=== PATIENT | male | born 1965 | race Caucasian/White ===

== ENCOUNTER → 2023-09-08 08:38 | Outpatient (REF) | payer SELFPAY | LOC: RAD 08:38 | PROVIDERS: ATTENDING PHYSICIAN Family Medicine | DX: E78.49 Other hyperlipidemia (principal); Z82.49 Family history of ischemic heart disease and other diseases of the circulatory system | CPT/HCPCS: 75571 ==

== ENCOUNTER 2024-01-19 11:43 | Emergency (ER) | payer OTHER, SELFPAY ==
[2024-01-19 11:46] VITALS: BP 150/86
--- NOTE | 2024-01-19 13:30 | ED.GENMED ---
History of Present Illness
<Jenn Garcia MD, Resident - Last Filed: 01/19/24 15:22>
General
Chief Complaint: Musculo-Skeletal Complaint
Source: patient
Time Seen by Provider: 01/19/24 12:33
History of Present Illness
History of Present Illness:
Patient is a 58-year-old male with past medical history of hyperlipidemia degenerative cervical spine disease who presented to the ED with concerns of neck pain. He states that 2 days ago he turned to look at the window of his car while driving and
he heard a click and felt pain. Since then he cannot turn his head to the side at all without experiencing severe pain though at baseline he is able to turn his head at least 20 to 30 degrees to the side. He states that he has to turn his whole
body in order to look to the side. Taking a single dose of Aleve last night and tried to sleep on his back but this position has worsened his pain. 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
medications very rarely. He denies any numbness/weakness in extremities, headache, blurred or fever.
Past History
<Jenn Garcia MD, Resident - Last Filed: 01/19/24 15:22>
Past History
ED Past Medical History: Hypercholesterolemia
ED Past Surgical History: None
Social History
Tobacco: Non-smoker
Alcohol: Occasional
Personal:
Living: with family
Employment: Employed
Review of Systems
<Jenn Garcia MD, Resident - Last Filed: 01/19/24 15:22>
Review of Systems
Constitutional: Denies fever or chills
Cardiac: Denies chest pain or palpitations
ABD/GI: Denies abdominal pain
Musculoskeletal: Reports neck pain
Neurological: Denies dizzy or headache
Phy Exam
<Jenn Garcia MD, Resident - Last Filed: 01/19/24 15:22>
General Physical Exam
General Presentation: well appearing
Cardiovascular Exam
Cardiovascular Exam: regular rate/rhythm and no murmur
Heart Sounds: normal
Pulmonary Exam
Pulmonary Exam: lungs clear
Gastrointestinal Exam
Gastrointestinal Exam: non tender, soft and non distended
Neurological Exam
Neurological Exam: oriented x3 and normal gait
Musculoskeletal Exam
Musculoskeletal Exam: neck pain
Skin Exam
Skin Exam: warm/dry
Psychiatric Exam
Psychiatric Exam: normal mood/affect
Course
<Jenn Garcia MD, Resident - Last Filed: 01/19/24 15:22>
Orders/Labs/Results
Orders:
Orders
01/19/24 13:58
Diazepam [Valium] 5 mg PO NOW STA
Ibuprofen [Motrin] 600 mg PO NOW STA
CR Cervical Spine 4 Or 5 Vw Urgent
Comment:
Reason For Exam: neck pain
Vital Signs
Initial and Last Documented VS:
Initial Vital Signs
Temp Pulse Resp BP Pulse Ox
98.1 F 85 16 150/86 98
01/19/24 11:46 01/19/24 11:46 01/19/24 11:46 01/19/24 11:46 01/19/24 11:46
Last Documented Vital Signs
Temp Pulse Resp BP Pulse Ox
98.1 F 85 16 150/86 98
01/19/24 11:46 01/19/24 11:46 01/19/24 11:46 01/19/24 11:46 01/19/24 11:46
<Jalyn Elaine MD - Last Filed: 01/19/24 13:58>
Orders/Labs/Results
Orders:
Orders
01/19/24 13:58
Diazepam [Valium] 5 mg PO NOW STA
Ibuprofen [Motrin] 600 mg PO NOW STA
CR Cervical Spine 4 Or 5 Vw Urgent
Comment:
Reason For Exam: neck pain
Vital Signs
Initial and Last Documented VS:
Initial Vital Signs
Temp Pulse Resp BP Pulse Ox
98.1 F 85 16 150/86 98
01/19/24 11:46 01/19/24 11:46 01/19/24 11:46 01/19/24 11:46 01/19/24 11:46
Last Documented Vital Signs
Temp Pulse Resp BP Pulse Ox
98.1 F 85 16 150/86 98
01/19/24 11:46 01/19/24 11:46 01/19/24 11:46 01/19/24 11:46 01/19/24 11:46
<Jenn Garcia MD, Resident - Last Filed: 01/19/24 15:22>
*Critical Care Note
Total Time (30-74mins, 75-104mins- exclusive of procedures): Not Applicable
<Jenn Garcia MD, Resident - Last Filed: 01/19/24 15:22>
Update Note
Update Note:
Ordered cervical spine xray which showed no new major degenerative changes compared to previous neck xray in 2020. Pt given ibuprofen and valium and discharged home with instructions to follow up with PCP.
ED Attending Note
<Jenn Garcia MD, Resident - Last Filed: 01/19/24 15:22>
-
Portions of this chart may have been created with voice recognition software.� Occasional wrong word or��sound alike� substitutions may have occurred due to the inherent limitations of voice recognition software.
<Jalyn Elaine MD - Last Filed: 01/19/24 13:58>
ED Attending Note
Patient seen and examined by attending physician: Yes
I performed a history and physical exam of patient and discussed management with resident, I reviewed resident's note and agree with documented findings and plan of care.: Yes
ED Attending Note:
Patient appears very well and comfortable. Patient has excellent strength of all extremities. He is walking. He denies any weakness or numbness of arms and legs.
Discharge Plan
Departure
Patient Disposition: Home (Routine Discharge)
Date of Disposition: 01/19/24
Time of Disposition: 15:06
Patient with high blood pressure during this ER visit?: Yes
Discharge Problem:
Neck pain, Degenerative disc disease, cervical
Prescriptions:
New
diazepam [Valium] 5 mg tablet
5 mg PO HS PRN (Reason: muscle spasm) Qty: 3 0RF
Activity Restrictions/Additional Instructions:
If worsening symptoms such as severe neck pain or numbess/weakness in extremities, please come to the ED. Use valium if needed for severe neck pain. Ibuprofen 600mg every 6-8hours as needed for the next 2 days.
Please follow up with family physician.
Interventions
Interventions:
*Risk Screen - Suicide Last Done: 01/19/24 11:48
*Neglect/Abuse Screening Last Done: 01/19/24 11:48
*ED COVID-19 Vaccine History Last Done: 01/19/24 11:48
ED-Musculoskeletal Assessment Last Done: 01/19/24 13:53
Discharge Date and Time
Print Language: [email or web address]
[2024-01-19] MEDS: VALIUM 5 MG PO (14:10)
[2024-01-19] MEDS: MOTRIN 600 MG PO (14:10)
== END 2024-01-19 15:34 | disposition home or self-care (01) ==
LOC: EMR 11:43
PROVIDERS: EMERGENCY PHYSICIAN Emergency Medicine; FAMILY PHYSICIAN Family Medicine
DX: M50.33 Other cervical disc degeneration, cervicothoracic region (principal); M50.323 Other cervical disc degeneration at C6-C7 level; M50.322 Other cervical disc degeneration at C5-C6 level; E78.00 Pure hypercholesterolemia, unspecified
CPT/HCPCS: 99283; 72050